=== PATIENT | male | born 1940 | race Caucasian/White ===

== ENCOUNTER → 2017-05-11 | Outpatient (CLI) | payer MEDICARE ==
[2017-05-11 14:10] LABS: INR 2.65
== END ==
LOC: M WUC 10:11
PROVIDERS: ATTEND Internal Medicine Cardiovascular Disease
DX: Z79.01 Long term (current) use of anticoagulants (principal)

== ENCOUNTER → 2017-06-15 | Outpatient (CLI) | payer MEDICARE ==
[2017-06-15 13:50] LABS: INR 1.76
== END ==
LOC: M WUC 10:52
PROVIDERS: ATTEND Internal Medicine Cardiovascular Disease
DX: Z79.01 Long term (current) use of anticoagulants (principal)

== ENCOUNTER → 2017-07-31 | Outpatient (REF) | payer MEDICARE ==
[2017-07-31 12:56] LABS: INR 2.33
== END ==
LOC: M LABDRWAD 12:11
PROVIDERS: ATTEND Internal Medicine Cardiovascular Disease
DX: Z79.01 Long term (current) use of anticoagulants (principal)

== ENCOUNTER → 2018-12-05 | Outpatient (REF) | payer MEDICARE ==
[2018-12-05 13:16] LABS: BASO % 0.6 % (0.0-1.0); EOS # 0.2 10^3/uL (0.0-0.50); EOS % 2.1 % (0.0-3.0); HEMATOCRIT 50.2 % (42.0-52.0); HEMOGLOBIN 16.5 g/dl (13.5-17.5); LYMPH # 1.5 10^3/uL (1.5-4.5); LYMPH % 21.8 % (24.0-44.0); MEAN CORPUSCULAR HEMOGLOBIN 31.3 pg (27.0-33.0); MEAN CORPUSCULAR HGB CONC 32.9 g/dl (32.0-36.5); MEAN CORPUSCULAR VOLUME 95.1 fl (80.0-96.0); MONO # 0.7 10^3/uL (0.0-0.8); MONO % 10.3 % (0.0-5.0); NEUTROPHILS # 4.5 10^3/uL (1.8-7.7); NEUTROPHILS % 64.8 % (36.0-66.0); PLATELET COUNT, AUTOMATED 176 10^3/uL (150-450); RED BLOOD COUNT 5.28 10^6/uL (4.30-6.10)
[2018-12-05 13:23] LABS: ALBUMIN 3.6 GM/DL (3.2-5.2); BILIRUBIN,TOTAL 0.6 MG/DL (0.2-1.0); CALCIUM LEVEL 8.9 MG/DL (8.8-10.2); CHOLESTEROL RISK RATIO 3.285 (<5); CREATININE FOR GFR 1.24 MG/DL (0.70-1.30); GLOMERULAR FILTRATION RATE 59.9 (>42); POTASSIUM SERUM 4.9 MEQ/L (3.5-5.1); TOTAL PROTEIN 6.8 GM/DL (6.4-8.2)
[2018-12-05 13:27] LABS: TOTAL 25(OH) VITAMIN D 54.7 NG/ML (30.0-100.0)
== END ==
LOC: M SFHCADAM 08:27
PROVIDERS: ATTEND Physician Assistant
DX: I10 Essential (primary) hypertension (principal); E78.2 Mixed hyperlipidemia; Z12.5 Encounter for screening for malignant neoplasm of prostate; Z13.21 Encounter for screening for nutritional disorder
CPT/HCPCS: 80053; 80061; 82306; 85025; G0103

== ENCOUNTER → 2019-01-11 | Outpatient (REF) | payer MEDICARE | LOC: M LAB REF 17:29 | PROVIDERS: ATTEND Dermatology | DX: C44.41 Basal cell carcinoma of skin of scalp and neck (principal); L82.1 Other seborrheic keratosis ==

== ENCOUNTER → 2019-02-19 | Outpatient (REF) | payer MEDICARE | LOC: M SFHCPLAZ 09:54 | PROVIDERS: ATTEND Dermatology | DX: C44.41 Basal cell carcinoma of skin of scalp and neck (principal) ==

== ENCOUNTER → 2019-05-31 | Outpatient (REF) | payer MEDICARE ==
[2019-05-31 15:04] LABS: BASO % 0.6 % (0.0-1.0); EOS # 0.1 10^3/uL (0.0-0.50); EOS % 1.1 % (0.0-3.0); HEMATOCRIT 48.4 % (42.0-52.0); HEMOGLOBIN 15.9 g/dl (13.5-17.5); LYMPH # 0.9 10^3/uL (1.5-4.5); LYMPH % 15.3 % (24.0-44.0); MEAN CORPUSCULAR HEMOGLOBIN 30.7 pg (27.0-33.0); MEAN CORPUSCULAR HGB CONC 32.9 g/dl (32.0-36.5); MEAN CORPUSCULAR VOLUME 93.4 fl (80.0-96.0); MONO # 0.6 10^3/uL (0.0-0.8); MONO % 9.1 % (0.0-5.0); NEUTROPHILS # 4.5 10^3/uL (1.8-7.7); NEUTROPHILS % 73.7 % (36.0-66.0); PLATELET COUNT, AUTOMATED 188 10^3/uL (150-450); RED BLOOD COUNT 5.18 10^6/uL (4.30-6.10); WHITE BLOOD COUNT 6.2 10^3/uL (4.0-10.0)
[2019-05-31 15:13] LABS: BILIRUBIN,TOTAL 0.6 MG/DL (0.2-1.0); CHOLESTEROL RISK RATIO 2.808 (<5); CREATININE FOR GFR 1.25 MG/DL (0.70-1.30); GLOMERULAR FILTRATION RATE 59.3 (>42); POTASSIUM SERUM 4.6 MEQ/L (3.5-5.1); PROSTATIC SPECIFIC AG MONITOR 4.44 NG/ML (< 4.00); TOTAL PROTEIN 7.2 GM/DL (6.4-8.2)
[2019-05-31 15:24] LABS: TOTAL 25(OH) VITAMIN D 38.1 NG/ML (30.0-100.0)
== END ==
LOC: M SFHCSACK 08:38
PROVIDERS: ATTEND Physician Assistant
DX: I10 Essential (primary) hypertension (principal); E78.2 Mixed hyperlipidemia; E53.8 Deficiency of other specified B group vitamins; R97.20 Elevated prostate specific antigen [PSA]; E55.9 Vitamin D deficiency, unspecified

== ENCOUNTER → 2019-10-30 | Outpatient (REF) | payer MEDICARE | LOC: M LAB REF 18:32 | PROVIDERS: ATTEND Dermatology | DX: C44.712 Basal cell carcinoma of skin of right lower limb, including hip (principal); L30.9 Dermatitis, unspecified ==

== ENCOUNTER → 2019-12-06 | Outpatient (REF) | payer MEDICARE ==
[2019-12-06 14:30] LABS: ALBUMIN 3.7 GM/DL (3.2-5.2); BILIRUBIN,TOTAL 0.6 MG/DL (0.2-1.0); CALCIUM LEVEL 8.9 MG/DL (8.8-10.2); CHOLESTEROL RISK RATIO 3.25 (<5); CREATININE FOR GFR 1.34 MG/DL (0.70-1.30); GLOMERULAR FILTRATION RATE 54.6 (>35); POTASSIUM SERUM 4.7 MEQ/L (3.5-5.1); TOTAL PROTEIN 6.7 GM/DL (6.4-8.2)
[2019-12-06 14:38] LABS: TOTAL 25(OH) VITAMIN D 40.8 NG/ML (30.0-100.0)
[2019-12-06 14:43] LABS: BASO # 0.1 10^3/uL (0.0-0.2); BASO % 0.8 % (0.0-1.0); EOS # 0.2 10^3/uL (0.0-0.5); EOS % 3.1 % (0.0-3.0); HEMATOCRIT 51.3 % (42.0-52.0); LYMPH # 1.5 10^3/uL (1.5-5.0); LYMPH % 22.6 % (24.0-44.0); MEAN CORPUSCULAR HEMOGLOBIN 29.9 pg (27.0-33.0); MEAN CORPUSCULAR HGB CONC 31.2 g/dl (32.0-36.5); MEAN CORPUSCULAR VOLUME 95.9 fl (80.0-96.0); MONO # 0.6 10^3/uL (0.0-0.8); MONO % 9.8 % (0.0-5.0); NEUTROPHILS # 4.2 10^3/uL (1.5-8.5); NEUTROPHILS % 63.4 % (36.0-66.0); PLATELET COUNT, AUTOMATED 180 10^3/uL (150-450); RED BLOOD COUNT 5.35 10^6/uL (4.30-6.10); WHITE BLOOD COUNT 6.5 10^3/uL (4.0-10.0)
== END ==
LOC: M SFHCSACK 08:38
PROVIDERS: ATTEND Physician Assistant
DX: I10 Essential (primary) hypertension (principal); E78.2 Mixed hyperlipidemia; E55.9 Vitamin D deficiency, unspecified; E53.8 Deficiency of other specified B group vitamins

== ENCOUNTER → 2020-05-06 | Outpatient (REF) | payer MEDICARE ==
[2020-05-06 13:13] LABS: BASO # 0.1 10^3/uL (0.0-0.2); BASO % 0.8 % (0.0-1.0); EOS # 0.2 10^3/uL (0.0-0.5); EOS % 2.3 % (0.0-3.0); HEMATOCRIT 51.2 % (42.0-52.0); HEMOGLOBIN 16.6 g/dl (13.5-17.5); LYMPH # 1.3 10^3/uL (1.5-5.0); LYMPH % 19.3 % (24.0-44.0); MEAN CORPUSCULAR HEMOGLOBIN 30.5 pg (27.0-33.0); MEAN CORPUSCULAR HGB CONC 32.4 g/dl (32.0-36.5); MEAN CORPUSCULAR VOLUME 94.1 fl (80.0-96.0); MONO # 0.7 10^3/uL (0.0-0.8); MONO % 10.6 % (0.0-5.0); NEUTROPHILS # 4.4 10^3/uL (1.5-8.5); NEUTROPHILS % 66.5 % (36.0-66.0); PLATELET COUNT, AUTOMATED 185 10^3/uL (150-450); RED BLOOD COUNT 5.44 10^6/uL (4.30-6.10); WHITE BLOOD COUNT 6.6 10^3/uL (4.0-10.0)
[2020-05-06 13:41] LABS: ALBUMIN 3.7 GM/DL (3.2-5.2); BILIRUBIN,TOTAL 0.7 MG/DL (0.2-1.0); CALCIUM LEVEL 8.7 MG/DL (8.8-10.2); CHOLESTEROL RISK RATIO 3.275 (<5); CREATININE FOR GFR 1.25 MG/DL (0.70-1.30); GLOMERULAR FILTRATION RATE 59.2 (>35); MAGNESIUM LEVEL 2.2 MG/DL (1.8-2.4); PROSTATIC SPECIFIC AG MONITOR 5.35 NG/ML (< 4.00); TOTAL PROTEIN 6.7 GM/DL (6.4-8.2)
[2020-05-06 13:45] LABS: TOTAL 25(OH) VITAMIN D 36.8 NG/ML (30.0-100.0)
== END ==
LOC: M SFHCADAM 09:03
PROVIDERS: ATTEND Family Medicine
DX: I10 Essential (primary) hypertension (principal); E78.2 Mixed hyperlipidemia; E83.42 Hypomagnesemia; E55.9 Vitamin D deficiency, unspecified; E53.8 Deficiency of other specified B group vitamins; R97.20 Elevated prostate specific antigen [PSA]

== ENCOUNTER → 2020-07-21 | Outpatient (REF) | payer MEDICARE ==
--- NOTE | 2020-08-18 15:06 | REPPI ---
TRANSRECTAL ULTRASOUND OF THE PROSTATE WITH ULTRASOUND-GUIDANCE FOR PROSTATE BIOPSY HISTORY: Elevated prostate-specific antigen. TECHNIQUE: Real-time sonographic evaluation of the prostate performed utilizing transrectal probe. FINDINGS: The size of the gland is 4.2 x 3.0 x 5.0 cm for a total volume of 32.6 mL. Echotexture is heterogeneous with scattered small cysts and calcifications. No peripheral zone mass is seen. Seminal vesicles are symmetrical. Ultrasound-guidance was provided for Dr. Rivera who performed ultrasound- guided biopsy of the prostate. [facility]
== END ==
LOC: M SMT PRO 12:52
PROVIDERS: ATTEND Urology
DX: D29.1 Benign neoplasm of prostate (principal); R97.20 Elevated prostate specific antigen [PSA]
CPT/HCPCS: 55700; 76872; 76942; G0416; G0463

== ENCOUNTER → 2020-09-30 | Outpatient (CLI) | payer MEDICARE ==
--- NOTE | 2020-09-30 14:23 | REP ---
INDICATION: LEFT HIP PAIN. COMPARISON: None. TECHNIQUE: Two views FINDINGS: Rim osteophyte acetabular roof and femoral head with the hip joint space relatively preserved. There are degenerative changes and sclerosis at the symphysis pubis. No fracture or destructive lesion the pubic rami, acetabulum or hip/iliac bone. There is no no AVN or other focal lesion. There are degenerative disc and facet changes lower lumbar spine. SI joints with the sclerotic margins. Vascular calcifications of the iliac and femoral arteries noted and the clips from prior a vasectomy noted in the scrotum IMPRESSION: : 1. [id number] osteoarthritic changes of the hips with acetabular roof spur and some some marginal osteophytes the femoral head without fracture avulsion significant joint space narrowing or destructive lesion 2. Moderate degenerative changes lower lumbar facets and disc spaces and sclerosis at the SI joints and symphysis pubis. <Electronically signed by Zac Quick > 09/30/20 [id number]
--- NOTE | 2020-09-30 14:25 | REP ---
INDICATION: LEFT HIP PAIN. COMPARISON: None. TECHNIQUE: Five views FINDINGS: AP view shows no evidence of scoliosis. There is facet arthropathy and degenerative disc change at L5-S1 and to a lesser extent L4-5. Disc spaces are narrowed throughout the lumbar spine posteriorly. Anterior osteophytes are present. No acute compression deformity. No spondylolysis or spondylolisthesis. The SI joints show sclerosis on both sides. The sacral ala and foramina otherwise unremarkable. Lower thoracic spine with degenerative changes. The visualized ribs intact. IMPRESSION: Degenerative disc and facet arthritic changes L4-5 and L5-S1 with lesser degenerative changes at levels above. No acute compression deformity or destructive lesion. SI joint sclerosis without erosion. <Electronically signed by Zac Quick > 09/30/20 [id number]
== END ==
LOC: M ADAMS 09:49
PROVIDERS: ATTEND Family Medicine
DX: M16.0 Bilateral primary osteoarthritis of hip (principal); M51.36 Other intervertebral disc degeneration, lumbar region; M51.37 Other intervertebral disc degeneration, lumbosacral region; M25.552 Pain in left hip

== ENCOUNTER → 2021-02-25 | Outpatient (CLI) | payer MEDICARE ==
[~2021-02-25] MED LIST: ISOVUE-300 61% 50ML VIAL As Ordered ONE; LIDOCAINE 1% MDV 20ML VIAL As Ordered ONE; methylPREDNISolone SUSP 40MG/ML 1ML VIAL (DEPO MEDROL) As Ordered ONE
--- NOTE | 2021-02-25 17:07 | REP ---
INDICATION: LT HIP OA W/ PAIN. COMPARISON: None TECHNIQUE: The procedure was performed by DARION Walden, under the direct supervision of Dr. Villasenor. The benefits and risks of the procedure were explained to the patient, and an informed consent was obtained. Directly prior to the start of the procedure, a formal time-out was completed in the procedure room. The left femoral neck joint space was localized using fluoroscopic guidance. The skin was prepped and draped in a sterile fashion. Approximately 5 mL of 1% Lidocaine 10 mg/ml was used as a local anesthetic. Using fluoroscopic guidance, a #22 gauge spinal needle was inserted and advanced into the left femoral neck joint space. Approximately 1 mL of Isovue 300 was injected to verify placement. Four mL of a solution containing 2 mL 1% lidocaine 10 mg/ml and 2 mL Depo-Medrol 40 milligrams/milliliter was injected into the joint space. The needle was removed and hemostasis was achieved. FINDINGS: The patient tolerated the procedure well and there were no immediate complications. IMPRESSION: 1. Fluoroscopic guided intra-articular left hip injection. 0.1 minutes of fluoroscopy time was utilized for this procedure. Some fluoroscopic images are performed with last image hold technology. These images require no additional radiation. <Electronically signed by Eloisa Power > 02/25/21 [id number] <Electronically signed by Dhaval Villasenor > 02/25/21 [id number]
== END ==
LOC: M RADPRO 11:01
PROVIDERS: ATTEND Orthopaedic Surgery Sports Medicine
DX: M16.12 Unilateral primary osteoarthritis, left hip (principal)
CPT/HCPCS: 20610; 77002; J1030; Q9967

== ENCOUNTER → 2021-03-03 | Outpatient (CLI) | payer MEDICARE ==
--- NOTE | 2021-03-03 15:20 | REP ---
INDICATION: LEFT HIP PAIN. COMPARISON: None TECHNIQUE: AP and frog-lateral views of the left hip with AP pelvis FINDINGS: There is prominent femoral head marginal osteophytosis with moderate acetabular marginal osteophytosis of the left hip. There is asymmetric left hip joint space narrowing which is moderate. Standing AP view of the hips shows moderate right hip asymmetric joint space narrowing to a lesser degree than the left and with femoral head marginal osteophytosis also to a lesser degree than the left. No acute fracture, dislocation, or subluxation is seen on either side. IMPRESSION: Chronic bilateral changes as described above. <Electronically signed by Winston Li > 03/03/21 [id number]
== END ==
LOC: M SOG 13:00
PROVIDERS: ATTEND Family Medicine
DX: M25.552 Pain in left hip (principal)

== ENCOUNTER → 2021-05-04 | Outpatient (CLI) | payer MEDICARE ==
--- NOTE | 2021-05-04 16:45 | REP ---
INDICATION: RENAL MASS. COMPARISON: None. FINDINGS: Multiple ultrasonographic images of the right kidney show the right kidney to measure 10.5 x 4.3 x 4.5 cm.. The renal cortical echotexture is unremarkable. There is a hypoechoic structure in the superior pole which measures 1.6 x 1.4 x 1.3 cm. This does not exhibit classic posterior wall enhancement or increased through transmission that would be seen in a simple cyst. There is good corticomedullary differentiation. There is no hydronephrosis. There are no perinephric fluid collections. Multiple ultrasonographic images of the left kidney show the left kidney to measure 10.6 x 5.6 x 3.4 cm.. The renal cortical echotexture is unremarkable. There are no solid masses. In the midpole region there is a large anechoic structure which measures 9.8 x 8.9 x 8.7 cm. This exhibits posterior wall enhancement and increased through transmission and is without septations or mural nodules. It does have slightly irregular briseno. There is good corticomedullary differentiation. There is no hydronephrosis. There are no perinephric fluid collections. IMPRESSION: 1. Hypoechoic nodule right kidney. Solid lesion cannot be ruled out. 2. Large simple appearing left renal cyst with somewhat irregular briseno. 3. Since there are no priors for comparison pre and postcontrast enhanced renal CT is recommended for further evaluation of the kidneys. . <Electronically signed by Winston Li > 05/04/21 [id number]
== END ==
LOC: M RAD 14:35
PROVIDERS: ATTEND Family Medicine
DX: N28.89 Other specified disorders of kidney and ureter (principal); N28.1 Cyst of kidney, acquired

== ENCOUNTER → 2021-05-13 | Outpatient (REF) | payer MEDICARE ==
[2021-05-13 14:10] LABS: BLOOD UREA NITROGEN 16 MG/DL (7-18); CALCIUM LEVEL 9.1 MG/DL (8.8-10.2); CARBON DIOXIDE LEVEL 28 MEQ/L (21-32); CHLORIDE LEVEL 107 MEQ/L (98-107); CREATININE FOR GFR 1.16 MG/DL (0.70-1.30); GLOMERULAR FILTRATION RATE > 60.0 (>35); GLUCOSE, FASTING 94 MG/DL (70-100); POTASSIUM SERUM 4.4 MEQ/L (3.5-5.1); SODIUM LEVEL 141 MEQ/L (136-145)
== END ==
LOC: M SFHCADAM 07:55
PROVIDERS: ATTEND Family Medicine
DX: N28.89 Other specified disorders of kidney and ureter (principal)

== ENCOUNTER → 2021-05-19 | Outpatient (CLI) | payer MEDICARE ==
[~2021-05-19] MED LIST changes: -ISOVUE-300 61% 50ML VIAL As Ordered ONE; +ISOVUE-370 76% 100ML VIAL As Ordered ONE; -LIDOCAINE 1% MDV 20ML VIAL As Ordered ONE; -methylPREDNISolone SUSP 40MG/ML 1ML VIAL (DEPO MEDROL) As Ordered ONE
--- NOTE | 2021-05-19 14:31 | REP ---
INDICATION: RENAL LESION. COMPARISON: None TECHNIQUE: Axial precontrast, contrast-enhanced and delayed images from the lung bases to the pubic symphysis using 100 cc Isovue 370 intravenous contrast material. Coronal and sagittal reformations obtained. This CT examination was performed using the following dose reduction techniques: Automated exposure control, adjustment of mA and/or kv according to the patient's size, and the use of iterative reconstruction technique. FINDINGS: The right kidney includes 3 hypodense lesions which remain stable in density throughout the examination and compatible with simple cysts. Specifically, the questionable upper pole hypoechoic lesion on recent ultrasound conforms to a 1.9 cm simple cyst. The left kidney includes multiple simple cysts including 8.5 cm simple cyst. No suspicious renal mass lesions are identified. Curvilinear calcification in the right renal hilum consistent with vascular calcification. Liver includes 1.2 cm cyst in the medial left lobe and mild diffuse fatty infiltration. Spleen, pancreas, gallbladder, and bilateral adrenal glands are normal. The enteric system demonstrates moderate fecal stasis without obstruction or acute inflammatory process. Colonic and sigmoid diverticulosis noted without acute diverticulitis. Pelvis demonstrates prostatomegaly with mass effect on the base of the bladder. Normal bladder. No ascites. No free air. No adenopathy. Extensive atherosclerotic changes to the aorta and vasculature noted without aneurysm or dissection. Skeletal structures demonstrate degenerative changes without acute osseous abnormality. IMPRESSION: 1. Bilateral renal hypodense lesions all of which conform to simple cysts including 8.5 cm cyst in the left kidney. 2. Sigmoid diverticulosis without acute diverticulitis. 3. 1.2 cm benign hepatic cyst. 4. Prostatomegaly. <Electronically signed by Michael Loza > 05/19/21 [id number]
== END ==
LOC: M RAD 13:06
PROVIDERS: ATTEND Family Medicine
DX: N28.1 Cyst of kidney, acquired (principal); K57.30 Diverticulosis of large intestine without perforation or abscess without bleeding; K76.89 Other specified diseases of liver
CPT/HCPCS: 74178; Q9967

== ENCOUNTER → 2021-06-11 | Outpatient (REF) | payer MEDICARE ==
[2021-06-11 19:18] LABS: HEMATOCRIT 49.5 % (42.0-52.0); HEMOGLOBIN 16.1 g/dl (13.5-17.5); MEAN CORPUSCULAR HEMOGLOBIN 31.9 pg (27.0-33.0); MEAN CORPUSCULAR HGB CONC 32.5 g/dl (32.0-36.5); MEAN CORPUSCULAR VOLUME 98.2 fl (80.0-96.0); PLATELET COUNT, AUTOMATED 201 10^3/uL (150-450); RED BLOOD COUNT 5.04 10^6/uL (4.30-6.10); WHITE BLOOD COUNT 7.7 10^3/uL (4.0-10.0)
== END ==
LOC: M LABDRWAD 18:54 → M LAB REF 18:54
PROVIDERS: ATTEND Nurse Practitioner Family
DX: I48.0 Paroxysmal atrial fibrillation (principal)
CPT/HCPCS: 36415; 85027; G0463

== ENCOUNTER → 2021-09-20 | Outpatient (REF) | payer MEDICARE ==
[2021-09-20 19:36] LABS: BASO % 0.7 % (0.0-1.0); EOS # 0.1 10^3/uL (0.0-0.5); EOS % 1.5 % (0.0-3.0); HEMATOCRIT 49.3 % (42.0-52.0); HEMOGLOBIN 15.8 g/dl (13.5-17.5); LYMPH # 1.1 10^3/uL (1.5-5.0); LYMPH % 19.3 % (24.0-44.0); MEAN CORPUSCULAR HEMOGLOBIN 32.6 pg (27.0-33.0); MEAN CORPUSCULAR VOLUME 101.9 fl (80.0-96.0); MONO # 0.6 10^3/uL (0.0-0.8); MONO % 9.9 % (2.0-8.0); NEUTROPHILS % 68.4 % (36.0-66.0); PLATELET COUNT, AUTOMATED 174 10^3/uL (150-450); RED BLOOD COUNT 4.84 10^6/uL (4.30-6.10); WHITE BLOOD COUNT 5.9 10^3/uL (4.0-10.0)
[2021-09-20 20:03] LABS: PERCENT SATURATION 29.9 % (19.7-50.0)
== END ==
LOC: M LABDRWAD 16:41
PROVIDERS: ATTEND Orthopaedic Surgery
DX: M16.12 Unilateral primary osteoarthritis, left hip (principal); M25.552 Pain in left hip

== ENCOUNTER → 2021-12-27 | Outpatient (REF) | payer MEDICARE ==
[2021-12-28 12:58] LABS: BASO % 0.5 % (0.0-1.0); EOS # 0.1 10^3/uL (0.0-0.5); EOS % 1.2 % (0.0-3.0); HEMATOCRIT 50.5 % (42.0-52.0); HEMOGLOBIN 16.1 g/dl (13.5-17.5); LYMPH # 1.4 10^3/uL (1.5-5.0); LYMPH % 17.4 % (24.0-44.0); MEAN CORPUSCULAR HEMOGLOBIN 30.9 pg (27.0-33.0); MEAN CORPUSCULAR HGB CONC 31.9 g/dl (32.0-36.5); MEAN CORPUSCULAR VOLUME 96.9 fl (80.0-96.0); MONO # 0.8 10^3/uL (0.0-0.8); MONO % 10.5 % (2.0-8.0); NEUTROPHILS # 5.6 10^3/uL (1.5-8.5); NEUTROPHILS % 70.2 % (36.0-66.0); PLATELET COUNT, AUTOMATED 175 10^3/uL (150-450); RED BLOOD COUNT 5.21 10^6/uL (4.30-6.10)
[2021-12-28 13:24] LABS: ALBUMIN 3.9 GM/DL (3.2-5.2); BILIRUBIN,TOTAL 0.8 MG/DL (0.2-1.0); CALCIUM LEVEL 9.4 MG/DL (8.8-10.2); CREATININE FOR GFR 1.38 MG/DL (0.70-1.30); GLOMERULAR FILTRATION RATE 52.5 (>35); POTASSIUM SERUM 5.7 MEQ/L (3.5-5.1); TOTAL PROTEIN 6.8 GM/DL (6.4-8.2)
== END ==
LOC: M SFHCADAM 15:51
PROVIDERS: ATTEND Family Medicine
DX: Z01.818 Encounter for other preprocedural examination (principal); Z79.899 Other long term (current) drug therapy

== ENCOUNTER → 2022-07-29 | Outpatient (CLI) | payer MEDICARE | LOC: M PAIN 13:00 | PROVIDERS: ATTEND Nurse Practitioner Family | DX: M51.16 Intervertebral disc disorders with radiculopathy, lumbar region (principal); I48.0 Paroxysmal atrial fibrillation; I10 Essential (primary) hypertension; E78.2 Mixed hyperlipidemia; M54.2 Cervicalgia; N40.0 Benign prostatic hyperplasia without lower urinary tract symptoms; E55.9 Vitamin D deficiency, unspecified; E53.8 Deficiency of other specified B group vitamins; R25.1 Tremor, unspecified; R97.20 Elevated prostate specific antigen [PSA]; Z85.828 Personal history of other malignant neoplasm of skin; N28.1 Cyst of kidney, acquired; Z79.01 Long term (current) use of anticoagulants; Z79.899 Other long term (current) drug therapy; Z96.649 Presence of unspecified artificial hip joint ==

== ENCOUNTER → 2022-09-29 | Outpatient (CLI) | payer MEDICARE ==
[~2022-09-29] MED LIST changes: +ACET1TAB37 PO; +ATEN50TA2 PO; +ATOR40TA75 PO; +B-121TAB3 PO; +CALC500T52 PO; +D-20TAB PO; +GABA600T4 PO; -ISOVUE-370 76% 100ML VIAL As Ordered ONE; +XARE20TA PO
== END ==
LOC: M LABSMTC 10:34
PROVIDERS: ATTEND Anesthesiology
DX: Z01.812 Encounter for preprocedural laboratory examination (principal); Z11.52 Encounter for screening for COVID-19

== ENCOUNTER → 2022-10-04 | Day surgery (SDC) | payer MEDICARE ==
[~2022-10-04] VITALS: Ht 182.9 cm; Wt 75.3 kg
[~2022-10-04] MED LIST changes: +ACETYLCHOLINE OPHTH SOLN 1% 2ML (MIOCHOL-E) As Ordered ONE; +CEFUROXIME 1MG/0.1ML INTRACAMERAL INJ As Ordered ONE; +LIDOCAINE 1% SDV 5ML VIAL As Ordered ONE; +MIDAZOLAM INJ 2MG/2ML VIAL (J2250 PER 1MG) As Ordered ONE; +PROPARACAINE 0.5% OPHTH SOL 15ML OS ONE; +fentaNYL 100 MCG/2 ML INJECTION As Ordered ONE
[2022-10-04] MEDS: OFLOXACIN 0.3 % (OCUFLOX) OPTH SOL 5ML OS SCH ×2 (07:54→07:56)
[2022-10-04] MEDS: PHENYLEPHRINE 2.5% OPHTH SOL 2ML OS SCH ×3 (07:54→07:56)
[2022-10-04] MEDS: CYCLOPENTOLATE 1% OPHTH SOLN 2 ML BTL OS SCH ×2 (07:54→07:56)
[2022-10-04] MEDS: TROPICAMIDE 1% OPHTH SOLN 2ML OS SCH ×3 (07:54→07:56)
[2022-10-04 10:29] VITALS: BP 173/87
== END | disposition home or self-care (01) ==
LOC: M SDC 06:58
PROVIDERS: ATTEND Ophthalmology
DX: H25.12 Age-related nuclear cataract, left eye (principal); H59.88 Other intraoperative complications of eye and adnexa, not elsewhere classified; I10 Essential (primary) hypertension; I48.91 Unspecified atrial fibrillation; E78.00 Pure hypercholesterolemia, unspecified; K21.9 Gastro-esophageal reflux disease without esophagitis; Z96.642 Presence of left artificial hip joint; Z87.891 Personal history of nicotine dependence; Z79.899 Other long term (current) drug therapy; Z79.01 Long term (current) use of anticoagulants
CPT/HCPCS: 66984; J0697; J2250; J3010; V2632

== ENCOUNTER → 2022-11-16 | Outpatient (REF) | payer MEDICARE ==
[~2022-11-16] MED LIST changes: -ACETYLCHOLINE OPHTH SOLN 1% 2ML (MIOCHOL-E) As Ordered ONE; -CEFUROXIME 1MG/0.1ML INTRACAMERAL INJ As Ordered ONE; -LIDOCAINE 1% SDV 5ML VIAL As Ordered ONE; -MIDAZOLAM INJ 2MG/2ML VIAL (J2250 PER 1MG) As Ordered ONE; -PROPARACAINE 0.5% OPHTH SOL 15ML OS ONE; -fentaNYL 100 MCG/2 ML INJECTION As Ordered ONE
[2022-11-16 15:04] LABS: BASO % 0.4 % (0.0-1.0); EOS # 0.1 10^3/uL (0.0-0.5); EOS % 0.7 % (0.0-3.0); HEMATOCRIT 47.5 % (42.0-52.0); HEMOGLOBIN 15.3 g/dl (13.5-17.5); LYMPH % 14.5 % (24.0-44.0); MEAN CORPUSCULAR HEMOGLOBIN 31.9 pg (27.0-33.0); MEAN CORPUSCULAR HGB CONC 32.2 g/dl (32.0-36.5); MEAN CORPUSCULAR VOLUME 99.2 fl (80.0-96.0); MONO # 0.6 10^3/uL (0.0-0.8); MONO % 9.4 % (2.0-8.0); NEUTROPHILS % 74.7 % (36.0-66.0); PLATELET COUNT, AUTOMATED 187 10^3/uL (150-450); RED BLOOD COUNT 4.79 10^6/uL (4.30-6.10); WHITE BLOOD COUNT 6.7 10^3/uL (4.0-10.0)
[2022-11-16 15:31] LABS: ALBUMIN 3.7 G/DL (3.2-5.2); ALKALINE PHOSPHATASE 45 U/L (46-116); ALT/SGPT 19 U/L (7.0-40); AST/SGOT 22 U/L (<34); BILIRUBIN,TOTAL 0.6 MG/DL (0.3-1.2); BLOOD UREA NITROGEN 19 MG/DL (9-23); CALCIUM LEVEL 9.9 MG/DL (8.3-10.6); CARBON DIOXIDE LEVEL 29 MMOL/L (20-31); CHLORIDE LEVEL 104 MMOL/L (98-107); CREATININE FOR GFR 1.11 MG/DL (0.70-1.30); GLOMERULAR FILTRATION RATE > 60.0 (>35); GLUCOSE, FASTING 88 MG/DL (74-106); POTASSIUM SERUM 4.5 MMOL/L (3.5-5.1); SODIUM LEVEL 141 MMOL/L (136-145); TOTAL PROTEIN 6.7 G/DL (5.7-8.2)
== END ==
LOC: M SFHCADAM 13:52
PROVIDERS: ATTEND Family Medicine
DX: Z01.818 Encounter for other preprocedural examination (principal)

== ENCOUNTER → 2023-02-20 | Outpatient (REF) | payer MEDICARE | LOC: M SFHCADAM 12:51 | PROVIDERS: ATTEND Family Medicine | DX: R19.7 Diarrhea, unspecified (principal) ==

== ENCOUNTER → 2023-02-21 | Outpatient (REF) | payer MEDICARE ==
[2023-02-21 16:37] LABS: BASO # 0.1 10^3/uL (0.0-0.2); BASO % 0.7 % (0.0-1.0); EOS # 0.1 10^3/uL (0.0-0.5); EOS % 0.7 % (0.0-3.0); HEMATOCRIT 48.9 % (42.0-52.0); HEMOGLOBIN 15.7 g/dl (13.5-17.5); LYMPH # 1.1 10^3/uL (1.5-5.0); LYMPH % 14.6 % (24.0-44.0); MEAN CORPUSCULAR HGB CONC 32.1 g/dl (32.0-36.5); MEAN CORPUSCULAR VOLUME 99.6 fl (80.0-96.0); MONO # 0.7 10^3/uL (0.0-0.8); MONO % 8.6 % (2.0-8.0); NEUTROPHILS # 5.7 10^3/uL (1.5-8.5); PLATELET COUNT, AUTOMATED 210 10^3/uL (150-450); RED BLOOD COUNT 4.91 10^6/uL (4.30-6.10); WHITE BLOOD COUNT 7.6 10^3/uL (4.0-10.0)
[2023-02-21 16:55] LABS: FREE T4 1.36 NG/DL (0.89-1.76)
[2023-02-21 16:56] LABS: ALKALINE PHOSPHATASE 49 U/L (46-116); ALT/SGPT 36 U/L (7.0-40); AST/SGOT 25 U/L (<34); BILIRUBIN,TOTAL 0.6 MG/DL (0.3-1.2); BLOOD UREA NITROGEN 17 MG/DL (9-23); CALCIUM LEVEL 9.7 MG/DL (8.3-10.6); CARBON DIOXIDE LEVEL 28 MMOL/L (20-31); CHLORIDE LEVEL 103 MMOL/L (98-107); CREATININE FOR GFR 1.17 MG/DL (0.70-1.30); GLOMERULAR FILTRATION RATE > 60.0 (>35); GLUCOSE, FASTING 91 MG/DL (74-106); POTASSIUM SERUM 5.1 MMOL/L (3.5-5.1); SODIUM LEVEL 139 MMOL/L (136-145); TOTAL PROTEIN 6.7 G/DL (5.7-8.2)
[2023-02-21 17:01] LABS: THYROID STIMULATING HORMONE 1.304 uIU/ML (0.55-4.78)
== END ==
LOC: M SFHCADAM 09:42
PROVIDERS: ATTEND Family Medicine
DX: Z00.00 Encounter for general adult medical examination without abnormal findings (principal); E78.5 Hyperlipidemia, unspecified; I48.0 Paroxysmal atrial fibrillation
CPT/HCPCS: 80053; 80061; 84439; 84443; 85025; G0103

== ENCOUNTER → 2023-02-21 | Outpatient (REF) | payer MEDICARE ==
[2023-02-21 16:52] LABS: BLOOD UREA NITROGEN 17 MG/DL (9-23); CALCIUM LEVEL 9.6 MG/DL (8.3-10.6); CARBON DIOXIDE LEVEL 28 MMOL/L (20-31); CHLORIDE LEVEL 103 MMOL/L (98-107); CHOLESTEROL LEVEL 124 MG/DL (<200); CHOLESTEROL RISK RATIO 2.45 (<5); CREATININE FOR GFR 1.15 MG/DL (0.70-1.30); GLOMERULAR FILTRATION RATE > 60.0 (>35); GLUCOSE, FASTING 87 MG/DL (74-106); HDL CHOLESTEROL 50.5 MG/DL (>40); LDL CHOLESTEROL 48.5 MG/DL (<100); NON-HDL-C 73.5 MG/DL; POTASSIUM SERUM 4.9 MMOL/L (3.5-5.1); SODIUM LEVEL 139 MMOL/L (136-145); TRIGLYCERIDES LEVEL 125 MG/DL (<150)
== END ==
LOC: M LABDRWAD 12:36
PROVIDERS: ATTEND Nurse Practitioner Family
DX: E78.5 Hyperlipidemia, unspecified (principal); I48.0 Paroxysmal atrial fibrillation

== ENCOUNTER → 2023-07-06 | Outpatient (REF) | payer MEDICARE ==
[2023-07-06 16:33] LABS: BASO % 0.5 % (0.0-1.0); EOS # 0.1 10^3/uL (0.0-0.5); EOS % 0.7 % (0.0-3.0); HEMATOCRIT 47.6 % (42.0-52.0); HEMOGLOBIN 15.3 g/dl (13.5-17.5); LYMPH % 12.9 % (24.0-44.0); MEAN CORPUSCULAR HEMOGLOBIN 32.4 pg (27.0-33.0); MEAN CORPUSCULAR HGB CONC 32.1 g/dl (32.0-36.5); MEAN CORPUSCULAR VOLUME 100.8 fl (80.0-96.0); MONO # 0.8 10^3/uL (0.0-0.8); MONO % 10.2 % (2.0-8.0); NEUTROPHILS # 5.6 10^3/uL (1.5-8.5); NEUTROPHILS % 75.3 % (36.0-66.0); PLATELET COUNT, AUTOMATED 187 10^3/uL (150-450); RED BLOOD COUNT 4.72 10^6/uL (4.30-6.10); WHITE BLOOD COUNT 7.4 10^3/uL (4.0-10.0)
[2023-07-06 16:55] LABS: ALBUMIN 4.1 G/DL (3.2-5.2); ALKALINE PHOSPHATASE 46 U/L (46-116); ALT/SGPT 63 U/L (7.0-40); AST/SGOT 35 U/L (<34); BILIRUBIN,TOTAL 0.6 MG/DL (0.3-1.2); BLOOD UREA NITROGEN 18 MG/DL (9-23); CALCIUM LEVEL 9.9 MG/DL (8.3-10.6); CARBON DIOXIDE LEVEL 27 MMOL/L (20-31); CHLORIDE LEVEL 103 MMOL/L (98-107); CREATININE FOR GFR 0.92 MG/DL (0.70-1.30); GLOMERULAR FILTRATION RATE > 60.0 (>35); GLUCOSE, FASTING 90 MG/DL (74-106); POTASSIUM SERUM 4.6 MMOL/L (3.5-5.1); SODIUM LEVEL 139 MMOL/L (136-145); TOTAL PROTEIN 6.9 G/DL (5.7-8.2)
== END ==
LOC: M SFHCADAM 11:48
PROVIDERS: ATTEND Physician Assistant
DX: M89.9 Disorder of bone, unspecified (principal)
CPT/HCPCS: 80053; 85025; G0103

== ENCOUNTER → 2023-07-06 | Outpatient (CLI) | payer MEDICARE | LOC: M ADAMS 11:51 | PROVIDERS: ATTEND Physician Assistant | DX: M51.34 Other intervertebral disc degeneration, thoracic region (principal); M50.31 Other cervical disc degeneration, high cervical region; M50.321 Other cervical disc degeneration at C4-C5 level; M50.322 Other cervical disc degeneration at C5-C6 level; M50.323 Other cervical disc degeneration at C6-C7 level; M50.33 Other cervical disc degeneration, cervicothoracic region; M89.9 Disorder of bone, unspecified ==

== ENCOUNTER → 2023-07-31 | Outpatient (CLI) | payer MEDICARE ==
[~2023-07-31] MED LIST changes: +DIPH50CA PO; +TRAM50TA2
== END ==
LOC: M RAD 11:58
PROVIDERS: ATTEND Specialist
DX: M19.041 Primary osteoarthritis, right hand (principal); M19.042 Primary osteoarthritis, left hand; R93.7 Abnormal findings on diagnostic imaging of other parts of musculoskeletal system
CPT/HCPCS: 78306; A9503

== ENCOUNTER → 2023-08-08 | Outpatient (CLI) | payer MEDICARE ==
[~2023-08-08] MED LIST changes: +DEXA2TA PO; +GASTROGRAFIN SOLUTION 30ML As Ordered ONE; +HYDR-4571 PO; +ISOVUE-370 76% 100ML VIAL As Ordered ONE; +MORP-69 PO; +MORP15TA2 PO; +SENN-83 PO
== END ==
LOC: M RAD 08:58
PROVIDERS: ATTEND Specialist
DX: C80.1 Malignant (primary) neoplasm, unspecified (principal); M89.8X8 Other specified disorders of bone, other site
CPT/HCPCS: 71260; 74177; Q9963; Q9967

== ENCOUNTER → 2023-08-11 | Outpatient (CLI) | payer MEDICARE ==
[~2023-08-11] MED LIST changes: -GASTROGRAFIN SOLUTION 30ML As Ordered ONE; -ISOVUE-370 76% 100ML VIAL As Ordered ONE
== END ==
LOC: M PLAIMG 14:07
PROVIDERS: ATTEND Radiology Radiation Oncology
DX: C79.51 Secondary malignant neoplasm of bone (principal)

== ENCOUNTER 2023-08-25 09:11 | Outpatient (RCR) | payer MEDICARE ==
[~2023-08-25 09:11] MED LIST changes: +MAGICMW SSP; +MORP30TASA PO
[2023-08-31] MEDS ORDERED: DEXA2TA PO (15:24)
[2023-08-31] MEDS ORDERED: METH5TA PO (15:45)
[2023-08-31] MEDS ORDERED: LIDO15SO PO (15:45)
[2023-09-02] MEDS ORDERED: MORP-69 PO (12:06)
[2023-09-02] MEDS ORDERED: LIDVISCBTL PO (12:06)
[2023-09-02] MEDS ORDERED: SENN-186 PO (12:06)
[2023-09-02] MEDS ORDERED: METH5TA PO (12:06)
[2023-09-02] MEDS ORDERED: DEXA2TA PO (12:06)
[2023-09-02] MEDS ORDERED: MORP15TA2 PO (12:08)
[2023-09-11] MEDS ORDERED: DILA4TAB13 PO ×2 (09:20)
[2023-09-11] MEDS ORDERED: BISA10SU PR (09:20)
[2023-09-11] MEDS ORDERED: GABA-1171 PO (09:20)
[2023-09-11] MEDS ORDERED: SENN-188 PO (09:20)
[2023-09-11] MEDS ORDERED: HYOS125TA PO (09:20)
[2023-09-11] MEDS ORDERED: FENT75DI29 TOP (09:20)
[2023-09-11] MEDS ORDERED: DEXA4TA PO (09:20)
[2023-09-11] MEDS ORDERED: ATIV1TAB10 PO (09:20)
[2023-09-11] MEDS ORDERED: MAGICMW SSP (09:20)
== END 2023-09-19 ==
LOC: M ONCR 09:11
PROVIDERS: ATTEND General Practice
DX: Z51.0 Encounter for antineoplastic radiation therapy (principal); M89.8X8 Other specified disorders of bone, other site

== ENCOUNTER → 2023-08-31 | Outpatient (CLI) | payer MEDICARE ==
[~2023-08-31] MED LIST changes: +LIDO15SO PO; +LIDVISCBTL PO; +METH5TA PO; +SENN-186 PO
[2023-08-31 14:34] VITALS: BP 142/78; O2SAT 94
== END ==
LOC: M PAL 13:26
PROVIDERS: ATTEND Nurse Practitioner Adult Health
DX: M85.88 Other specified disorders of bone density and structure, other site (principal); R91.8 Other nonspecific abnormal finding of lung field; G89.3 Neoplasm related pain (acute) (chronic); G89.29 Other chronic pain; G57.83 Other specified mononeuropathies of bilateral lower limbs; Z51.5 Encounter for palliative care; Z79.01 Long term (current) use of anticoagulants; Z79.51 Long term (current) use of inhaled steroids; Z79.52 Long term (current) use of systemic steroids; Z79.891 Long term (current) use of opiate analgesic; Z79.899 Other long term (current) drug therapy; Z85.820 Personal history of malignant melanoma of skin; Z85.828 Personal history of other malignant neoplasm of skin; Z87.891 Personal history of nicotine dependence; Z80.3 Family history of malignant neoplasm of breast; Z80.42 Family history of malignant neoplasm of prostate; Z80.43 Family history of malignant neoplasm of testis; Z90.79 Acquired absence of other genital organ(s); Z92.23 Personal history of estrogen therapy; Z92.3 Personal history of irradiation; R13.19 Other dysphagia
CPT/HCPCS: 93005; G0463

== ENCOUNTER 2023-09-02 08:56 | Observation (INO) | payer MEDICARE ==
[~2023-09-02] VITALS: Ht 180.3 cm; Wt 65.8 kg
[~2023-09-02 08:56] MED LIST changes: -LIDVISCBTL PO; -SENN-186 PO
[2023-09-02] MEDS ORDERED: atenoloL 50 MG TAB PO SCH (09:00)
[2023-09-02] MEDS ORDERED: ATORVASTATIN 20 MG TAB PO SCH (09:00)
[2023-09-02] MEDS ORDERED: MAGIC MOUTHWASH *ED ONLY* 5ML ORAL SYRINGE SS ONE (09:30)
[2023-09-02] MEDS ORDERED: NS 500 ML IV ONE ×3 (09:45→13:20)
[2023-09-02 09:55] LABS: BASO % 0.2 % (0.0-1.0); EOS # 0.1 10^3/uL (0.0-0.5); EOS % 2.2 % (0.0-3.0); HEMATOCRIT 42.1 % (42.0-52.0); HEMOGLOBIN 14.2 g/dl (13.5-17.5); LYMPH # 0.2 10^3/uL (1.5-5.0); LYMPH % 3.4 % (24.0-44.0); MEAN CORPUSCULAR HEMOGLOBIN 32.7 pg (27.0-33.0); MEAN CORPUSCULAR HGB CONC 33.7 g/dl (32.0-36.5); MONO # 0.4 10^3/uL (0.0-0.8); MONO % 7.1 % (2.0-8.0); NEUTROPHILS # 4.4 10^3/uL (1.5-8.5); NEUTROPHILS % 86.7 % (36.0-66.0); PLATELET COUNT, AUTOMATED 160 10^3/uL (150-450); RED BLOOD COUNT 4.34 10^6/uL (4.30-6.10); WHITE BLOOD COUNT 5.1 10^3/uL (4.0-10.0)
[2023-09-02 10:20] LABS: ALBUMIN 2.9 G/DL (3.2-5.2); ALKALINE PHOSPHATASE 51 U/L (46-116); ALT/SGPT 23 U/L (7.0-40); AST/SGOT 20 U/L (<34); BILIRUBIN,DIRECT 0.5 MG/DL (<0.4); BILIRUBIN,TOTAL 1.1 MG/DL (0.3-1.2); BLOOD UREA NITROGEN 40 MG/DL (9-23); CALCIUM LEVEL 9.4 MG/DL (8.3-10.6); CARBON DIOXIDE LEVEL 29 MMOL/L (20-31); CHLORIDE LEVEL 103 MMOL/L (98-107); CREATININE FOR GFR 1.02 MG/DL (0.70-1.30); GLOMERULAR FILTRATION RATE > 60.0 (>35); GLUCOSE, FASTING 113 MG/DL (74-106); SODIUM LEVEL 140 MMOL/L (136-145); TOTAL PROTEIN 5.9 G/DL (5.7-8.2)
[2023-09-02] MEDS ORDERED: MORPHINE 30 MG TAB **MSIR PO PRN (10:45)
[2023-09-02] MEDS ORDERED: MED REC IN PROGRESS XX SCH (11:40)
[2023-09-02] MEDS ORDERED: NYSTATIN 500,000U/5ML SUSP UDC SS SCH ×2 (12:00→16:00)
[2023-09-02] MEDS ORDERED: METH5TA PO (12:06)
[2023-09-02] MEDS ORDERED: LIDVISCBTL PO (12:06)
[2023-09-02] MEDS ORDERED: MORP-69 PO (12:06)
[2023-09-02] MEDS ORDERED: SENN-186 PO (12:06)
[2023-09-02] MEDS ORDERED: DEXA2TA PO (12:06)
[2023-09-02] MEDS ORDERED: MORP15TA2 PO (12:08)
[2023-09-02] MEDS ORDERED: HOME MED LIST COMPLETE! XX SCH (12:20)
[2023-09-02] MEDS ORDERED: MORPHINE 2 MG/ML 1ML VIAL IV PRN (13:20)
[2023-09-02 14:55] VITALS: BP 147/87; TEMP 99; O2SAT 96
[2023-09-02] MEDS ORDERED: NS 1,000 ML IV SCH (15:00)
[2023-09-02] MEDS ORDERED: REMDESIVIR 200 MG in NS 250 ML IV ONE (16:00)
[2023-09-02 16:20] VITALS: BP 136/72; TEMP 97.5; O2SAT 99
[2023-09-02] MEDS: MAGIC MOUTHWASH SUSPENSION BTL SSP SCH (17:30)
[2023-09-02] MEDS ORDERED: RIVAROXABAN 20MG TAB (XARELTO) PO SCH (18:00)
[2023-09-02] MEDS ORDERED: MORPHINE 10 MG/ML 1ML VIAL IM PRN (18:10)
[2023-09-02] MEDS ORDERED: FENTANYL REMOVAL DOCUMENTATION MISC XX SCH (18:45)
[2023-09-02] MEDS ORDERED: MORPHINE 10 MG/ML 1ML VIAL IV PRN (18:45)
[2023-09-02] MEDS ORDERED: fentaNYL 25 MCG/HR PATCH TOP SCH (20:00)
[2023-09-03] MEDS ORDERED: HYDROmorphone HCL 2MG/ML 1ML VIAL IV PRN (01:55)
[2023-09-03] MEDS: HYDROmorphone HCL 2MG/ML 1ML VIAL IV PRN ×3 (02:32→09:54)
[2023-09-03] MEDS: MAGIC MOUTHWASH SUSPENSION BTL SSP SCH ×3 (05:49→17:10)
[2023-09-03] MEDS ORDERED: CYANOCOBALAMIN 500 MCG TAB PO SCH (09:00)
[2023-09-03] MEDS ORDERED: BISACODYL 10MG SUPP PR PRN (11:20)
[2023-09-03] MEDS: HYDROmorphone HCL 2MG/ML 1ML VIAL IV SCH ×3 (13:37→21:49)
[2023-09-03] MEDS ORDERED: fentaNYL 50 MCG/HR PATCH TOP SCH (14:00)
[2023-09-03] MEDS ORDERED: REMDESIVIR 100 MG in NS 250 ML IV SCH (18:00)
[2023-09-04] MEDS: HYDROmorphone HCL 2MG/ML 1ML VIAL IV SCH ×6 (01:59→22:42)
[2023-09-04] MEDS: MAGIC MOUTHWASH SUSPENSION BTL SSP SCH ×3 (06:05→17:42)
[2023-09-04] MEDS: HYDROmorphone HCL 2MG/ML 1ML VIAL IV PRN (20:42)
[2023-09-05] MEDS: HYDROmorphone HCL 2MG/ML 1ML VIAL IV SCH ×10 (02:31→22:04)
[2023-09-05] MEDS ORDERED: HYDROmorphone HCL 2MG/ML 1ML VIAL IV PRN (05:20)
[2023-09-05] MEDS ORDERED: LORazepam 2 MG/ML 1ML VIAL IV PRN (08:00)
[2023-09-05] MEDS: MAGIC MOUTHWASH SUSPENSION BTL SSP SCH ×3 (08:42→17:30)
[2023-09-05] MEDS ORDERED: fentaNYL 25 MCG/HR PATCH TOP SCH (20:00)
[2023-09-06] MEDS: HYDROmorphone HCL 2MG/ML 1ML VIAL IV SCH ×4 (00:29→05:38)
[2023-09-06] MEDS ORDERED: LORazepam 2 MG/ML 1ML VIAL IV PRN (07:00)
[2023-09-06] MEDS: MAGIC MOUTHWASH SUSPENSION BTL SSP SCH ×3 (09:27→16:47)
[2023-09-06] MEDS: HYDROmorphone 4MG TABLET PO SCH ×4 (09:28→20:54)
[2023-09-06] MEDS: FENTANYL REMOVAL DOCUMENTATION MISC XX SCH (13:16)
[2023-09-06] MEDS: fentaNYL 75 MCG/HR PATCH TOP SCH (13:17)
[2023-09-06] MEDS: GABAPENTIN 100 MG CAP PO SCH ×2 (16:48→20:53)
[2023-09-06] MEDS: SENNA 8.6 MG TAB (SENOKOT) PO SCH (20:53)
[2023-09-07] MEDS: HYDROmorphone 4MG TABLET PO SCH ×6 (00:36→20:51)
[2023-09-07] MEDS: GABAPENTIN 100 MG CAP PO SCH ×3 (10:02→20:51)
[2023-09-07] MEDS: dexAMETHasone 4 MG TAB PO SCH (10:02)
[2023-09-07] MEDS: SENNA 8.6 MG TAB (SENOKOT) PO SCH ×2 (10:03→20:51)
[2023-09-07] MEDS: MAGIC MOUTHWASH SUSPENSION BTL SSP SCH ×3 (10:03→16:33)
[2023-09-08] MEDS: HYDROmorphone 4MG TABLET PO SCH ×6 (01:04→21:12)
[2023-09-08] MEDS: GABAPENTIN 100 MG CAP PO SCH ×3 (08:30→21:12)
[2023-09-08] MEDS: dexAMETHasone 4 MG TAB PO SCH (08:31)
[2023-09-08] MEDS: MAGIC MOUTHWASH SUSPENSION BTL SSP SCH ×3 (08:31→17:38)
[2023-09-08] MEDS: SENNA 8.6 MG TAB (SENOKOT) PO SCH ×2 (08:31→21:12)
[2023-09-08] MEDS: HYDROmorphone 4MG TABLET PO PRN (15:21)
[2023-09-09] MEDS: HYDROmorphone 4MG TABLET PO SCH ×6 (01:00→20:42)
[2023-09-09] MEDS: MAGIC MOUTHWASH SUSPENSION BTL SSP SCH ×3 (09:13→16:50)
[2023-09-09] MEDS: SENNA 8.6 MG TAB (SENOKOT) PO SCH ×2 (09:16→20:42)
[2023-09-09] MEDS: GABAPENTIN 100 MG CAP PO SCH ×3 (09:16→20:41)
[2023-09-09] MEDS: dexAMETHasone 4 MG TAB PO SCH (09:16)
[2023-09-09] MEDS: fentaNYL 75 MCG/HR PATCH TOP SCH (14:37)
[2023-09-09] MEDS: FENTANYL REMOVAL DOCUMENTATION MISC XX SCH (14:38)
[2023-09-10] MEDS: HYDROmorphone 4MG TABLET PO SCH ×6 (03:08→20:34)
[2023-09-10] MEDS: MAGIC MOUTHWASH SUSPENSION BTL SSP SCH ×3 (09:31→17:40)
[2023-09-10] MEDS: dexAMETHasone 4 MG TAB PO SCH (09:32)
[2023-09-10] MEDS: GABAPENTIN 100 MG CAP PO SCH ×3 (09:32→20:32)
[2023-09-10] MEDS: SENNA 8.6 MG TAB (SENOKOT) PO SCH ×2 (09:32→20:32)
[2023-09-11] MEDS: HYDROmorphone 4MG TABLET PO SCH ×3 (01:29→09:31)
[2023-09-11] MEDS: HYDROmorphone 4MG TABLET PO PRN ×2 (05:22→06:06)
[2023-09-11] MEDS ORDERED: GABA-1171 PO (09:20)
[2023-09-11] MEDS ORDERED: HYOS125TA PO (09:20)
[2023-09-11] MEDS ORDERED: DILA4TAB13 PO ×2 (09:20)
[2023-09-11] MEDS ORDERED: SENN-188 PO (09:20)
[2023-09-11] MEDS ORDERED: FENT75DI29 TOP (09:20)
[2023-09-11] MEDS ORDERED: MAGICMW SSP (09:20)
[2023-09-11] MEDS ORDERED: DEXA4TA PO (09:20)
[2023-09-11] MEDS ORDERED: BISA10SU PR (09:20)
[2023-09-11] MEDS ORDERED: ATIV1TAB10 PO (09:20)
[2023-09-11] MEDS: SENNA 8.6 MG TAB (SENOKOT) PO SCH (09:30)
[2023-09-11] MEDS: MAGIC MOUTHWASH SUSPENSION BTL SSP SCH (09:30)
[2023-09-11] MEDS: dexAMETHasone 4 MG TAB PO SCH (09:31)
[2023-09-11] MEDS: GABAPENTIN 100 MG CAP PO SCH (09:31)
== END 2023-09-11 12:03 | disposition hospice, home (50) ==
LOC: M ED 08:56 → M ED INP 08:57 → ENRESERV 13:32 → M MSPAV 14:55 → M PCU 16:30 → M MSPAV 18:39
PROVIDERS: ADMIT Student in an Organized Health Care Education/Training Program; ATTEND Internal Medicine
DX: C79.49 Secondary malignant neoplasm of other parts of nervous system (principal); C79.51 Secondary malignant neoplasm of bone; G89.3 Neoplasm related pain (acute) (chronic); Z92.3 Personal history of irradiation; R13.10 Dysphagia, unspecified; Z51.5 Encounter for palliative care; Z66 Do not resuscitate; R91.8 Other nonspecific abnormal finding of lung field; R53.1 Weakness; E46 Unspecified protein-calorie malnutrition; U07.1 COVID-19; E86.0 Dehydration; K59.00 Constipation, unspecified; R63.0 Anorexia; I48.91 Unspecified atrial fibrillation; I10 Essential (primary) hypertension; Z85.820 Personal history of malignant melanoma of skin; Z85.828 Personal history of other malignant neoplasm of skin; Z87.891 Personal history of nicotine dependence; Z79.899 Other long term (current) drug therapy
CPT/HCPCS: 36415; 80048; 80076; 84484; 85025; 87070; 87635; 93005; 93041; 94760; 96361; 96374; 96375; 96376; 99285; G0378; J1170; J2060